=== PATIENT | male | born 1985 | race African-American/Black ===

== ENCOUNTER 2016-08-19 22:10 | Emergency (ER) | payer MEDICAID | END 2016-08-19 23:05 | disposition home or self-care (01) | LOC: D.ER 22:10 | DX: K08.89 Other specified disorders of teeth and supporting structures (principal); E11.9 Type 2 diabetes mellitus without complications; Z79.4 Long term (current) use of insulin; F17.200 Nicotine dependence, unspecified, uncomplicated ==

== ENCOUNTER 2017-05-30 00:33 | Emergency (ER) | payer MEDICAID ==
[2017-05-30 01:20] LABS: APPEARANCE CLEAR (CLEAR); BILIRUBIN NEGATIVE (NEGATIVE); COLOR YELLOW (YELLOW); GLUCOSE NEGATIVE (NEGATIVE); KETONE NEGATIVE (NEGATIVE); NITRITE NEGATIVE (NEGATIVE); PROTEIN NEGATIVE (NEGATIVE); UROBILINOGEN NORMAL (NORMAL)
[2017-05-30 01:41] LABS: BASOPHILS 0.4 % (0-2); EOSINOPHILS 2.2 % (0-7); HEMATOCRIT 40.5 % (42.0-54.0); HEMOGLOBIN 13.7 g/dL (13.5-17.5); IMMATURE GRANULOCYTES 0.2 % (0-5); LYMPHOCYTES 37.8 % (15-50); MCH 27.6 pg (26.0-34.0); MCHC 33.8 g/dL (31.0-37.0); MCV 81.7 fL (80.0-100.0); MONOCYTES 7.3 % (2-11); NEUTROPHILS 52.1 % (40-80); RBC 4.96 10x6/uL (4.20-6.10); RDW 13.3 % (11.5-14.5)
[2017-05-30 01:43] LABS: PLATELET COUNT 184 10x3/uL (130-400)
[2017-05-30 01:58] LABS: ALBUMIN 3.5 g/dL (3.4-5.0); ANION GAP 15.3 mmol/L (8-16); BILIRUBIN - TOTAL 0.3 mg/dL (0.2-1.3); CALCIUM 8.7 mg/dL (8.5-10.1); CARBON DIOXIDE 25.4 mmol/L (21.0-32.0); CREATININE - SERUM 1.2 mg/dL (0.6-1.3); POTASSIUM - SERUM 3.7 mmol/L (3.5-5.1); PROTEIN - SERUM 7.7 g/dL (6.4-8.2)
== END 2017-05-30 02:35 | disposition home or self-care (01) ==
LOC: D.ER 00:33
PROVIDERS: Emergency Medicine
DX: R11.10 Vomiting, unspecified (principal); E11.65 Type 2 diabetes mellitus with hyperglycemia; Z79.4 Long term (current) use of insulin; F17.200 Nicotine dependence, unspecified, uncomplicated

== ENCOUNTER 2017-11-08 14:36 | Emergency (ER) | payer MEDICAID ==
[2017-11-08 15:13] LABS: BASOPHILS 0.5 % (0-2); EOSINOPHILS 2.2 % (0-7); HEMATOCRIT 42.7 % (42.0-54.0); HEMOGLOBIN 14.8 g/dL (13.5-17.5); IMMATURE GRANULOCYTES 0.2 % (0-5); LYMPHOCYTES 38.7 % (15-50); MCH 28.1 pg (26.0-34.0); MCHC 34.7 g/dL (31.0-37.0); MCV 81.2 fL (80.0-100.0); MEAN PLATELET VOLUME 11.6 fL (7.4-10.4); MONOCYTES 6.7 % (2-11); NEUTROPHILS 51.7 % (40-80); PLATELET COUNT 181 10x3/uL (130-400); RBC 5.26 10x6/uL (4.20-6.10); RDW 13.4 % (11.5-14.5); WBC 4.2 10x3/uL (4.8-10.8)
[2017-11-08 15:17] LABS: APPEARANCE CLEAR (CLEAR); BILIRUBIN NEGATIVE (NEGATIVE); COLOR YELLOW (YELLOW); GLUCOSE 1000 mg/dL (NEGATIVE); KETONE NEGATIVE (NEGATIVE); NITRITE NEGATIVE (NEGATIVE); PROTEIN NEGATIVE (NEGATIVE); UROBILINOGEN NORMAL (NORMAL)
[2017-11-08 15:19] LABS: BACTERIA FEW /hpf (NONE SEEN); EPITHELIAL CELLS 0-5 /hpf (0-5); WHITE CELLS - URINE 0-5 /hpf (0-5)
[2017-11-08 15:27] LABS: ALBUMIN 3.6 g/dL (3.4-5.0); ALKALINE PHOSPHATASE 97 U/L (46-116); ALT (SGPT) 53 U/L (10-68); BILIRUBIN - TOTAL 0.57 mg/dL (0.2-1.3); CALC OSMOLALITY 283 mosm/kg (275-300); CALCIUM 9.2 mg/dL (8.5-10.1); CARBON DIOXIDE 28.1 mmol/L (21.0-32.0); CHLORIDE - SERUM 100 mmol/L (98-107); GLUCOSE 325 mg/dL (74-106); POTASSIUM - SERUM 3.9 mmol/L (3.5-5.1); PROTEIN - SERUM 7.8 g/dL (6.4-8.2); SODIUM 136 mmol/L (136-145); UREA NITROGEN 9 mg/dL (7-18); eGFR NON AFRICAN AMERICAN > 90 mL/min (90-120)
== END 2017-11-08 20:25 | disposition home or self-care (01) ==
LOC: D.ER 14:36
PROVIDERS: Emergency Medicine
DX: E11.65 Type 2 diabetes mellitus with hyperglycemia (principal); Z79.4 Long term (current) use of insulin; F17.200 Nicotine dependence, unspecified, uncomplicated

== ENCOUNTER 2017-11-10 13:06 | Emergency (ER) | payer MEDICAID | END 2017-11-10 15:54 | disposition left against medical advice (07) | LOC: D.ER 13:06 | DX: R42 Dizziness and giddiness (principal) ==

== ENCOUNTER 2018-05-27 10:17 | Emergency (ER) | payer SELFPAY ==
[~2018-05-27] VITALS: Ht 182.9 cm; Wt 109.1 kg
[2018-05-27 10:21] VITALS: Ht 182.9 cm; Wt 109.1 kg
[2018-05-27] MEDS ORDERED: TORADOL10 MG PO (11:19)
[2018-05-27 12:40] VITALS: BP 107/70
== END 2018-05-27 12:40 | disposition home or self-care (01) ==
LOC: D.ER 10:17
DX: M25.562 Pain in left knee (principal); F17.200 Nicotine dependence, unspecified, uncomplicated

== ENCOUNTER 2018-06-19 19:27 | Emergency (ER) | payer SELFPAY ==
[~2018-06-19] VITALS: Ht 182.9 cm; Wt 109.1 kg
[~2018-06-19 19:27] MED LIST: TORADOL10 MG PO
[2018-06-19 19:34] VITALS: Ht 182.9 cm; Wt 109.1 kg
[2018-06-19] MEDS ORDERED: DICLOFENAC SODI50 MG PO (21:31)
[2018-06-19 22:10] VITALS: BP 122/77
== END 2018-06-19 22:10 | disposition home or self-care (01) ==
LOC: D.ER 19:27
DX: R59.0 Localized enlarged lymph nodes (principal); M54.16 Radiculopathy, lumbar region; F17.200 Nicotine dependence, unspecified, uncomplicated

== ENCOUNTER 2018-07-12 22:44 | Emergency (ER) | payer SELFPAY ==
[~2018-07-12] VITALS: Ht 182.9 cm; Wt 109.1 kg
[~2018-07-12 22:44] MED LIST changes: +DICLOFENAC SODI50 MG PO
[2018-07-12 22:47] VITALS: Ht 182.9 cm; Wt 109.1 kg
[2018-07-12] MEDS ORDERED: GLUCOPHAGE500 MG PO (22:48)
[2018-07-12] MEDS ORDERED: UNK INSULIN (22:48)
[2018-07-12 23:21] LABS: BASOPHILS 0.4 % (0-2); EOSINOPHILS 1.6 % (0-7); HEMATOCRIT 41.6 % (42.0-54.0); HEMOGLOBIN 14.5 g/dL (13.5-17.5); IMMATURE GRANULOCYTES 0.2 % (0-5); LYMPHOCYTES 40.6 % (15-50); MCH 28.6 pg (26.0-34.0); MCHC 34.9 g/dL (31.0-37.0); MCV 82.1 fL (80.0-100.0); MEAN PLATELET VOLUME 11.9 fL (7.4-10.4); MONOCYTES 6.9 % (2-11); NEUTROPHILS 50.3 % (40-80); PLATELET COUNT 198 10x3/uL (130-400); RBC 5.07 10x6/uL (4.20-6.10); RDW 12.9 % (11.5-14.5); WBC 5.1 10x3/uL (4.8-10.8)
[2018-07-12 23:32] LABS: APTT 25.7 SECONDS (22.8-39.4); INR 0.98 (0.85-1.17); PROTIME 12.5 SECONDS (11.6-15.0)
[2018-07-12 23:47] LABS: ALBUMIN 3.7 g/dL (3.4-5.0); ALKALINE PHOSPHATASE 94 U/L (46-116); ALT (SGPT) 52 U/L (10-68); BILIRUBIN - TOTAL 0.26 mg/dL (0.2-1.3); CALCIUM 9.1 mg/dL (8.5-10.1); CARBON DIOXIDE 26.4 mmol/L (21.0-32.0); CHLORIDE - SERUM 96 mmol/L (98-107); CKMB 0.1 U/L (0.0-3.6); CREATINE KINASE 118 UL (21-232); CREATININE - SERUM 1.3 mg/dL (0.6-1.3); MAGNESIUM - SERUM 1.9 mg/dL (1.8-2.4); POTASSIUM - SERUM 3.9 mmol/L (3.5-5.1); PROTEIN - SERUM 8.2 g/dL (6.4-8.2); SODIUM 133 mmol/L (136-145); UREA NITROGEN 12 mg/dL (7-18); eGFR NON AFRICAN AMERICAN 67 mL/min (90-120)
[2018-07-12 23:49] LABS: CALC OSMOLALITY 284 mosm/kg (275-300); GLUCOSE 445 mg/dL (74-106); TROPONIN-I < 0.017 ng/mL (0.000-0.060)
[2018-07-13 00:06] LABS: UDS - AMPHET NEGATIVE QUAL (NEGATIVE); UDS - BARB NEGATIVE QUAL (NEGATIVE); UDS - BENZO NEGATIVE QUAL (NEGATIVE); UDS - COCAINE NEGATIVE QUAL (NEGATIVE); UDS - OPIATE NEGATIVE QUAL (NEGATIVE); UDS - PCP NEGATIVE QUAL (NEGATIVE); UDS - THC NEGATIVE QUAL (NEGATIVE)
[2018-07-13 02:34] VITALS: BP 124/87
== END 2018-07-13 02:34 | disposition home or self-care (01) ==
LOC: D.ER 22:44
PROVIDERS: Emergency Medicine
DX: E11.65 Type 2 diabetes mellitus with hyperglycemia (principal); R07.89 Other chest pain; F17.200 Nicotine dependence, unspecified, uncomplicated

== ENCOUNTER 2019-02-21 19:37 | Emergency (ER) | payer SELFPAY ==
[~2019-02-21] VITALS: Ht 182.9 cm; Wt 106.8 kg
[~2019-02-21 19:37] MED LIST changes: +GLUCOPHAGE500 MG PO; +UNK INSULIN
[2019-02-21 19:58] VITALS: Ht 182.9 cm; Wt 106.8 kg
[2019-02-21 20:18] LABS: BASOPHILS 0.5 % (0-2); EOSINOPHILS 2.7 % (0-7); HEMATOCRIT 43.4 % (42.0-54.0); HEMOGLOBIN 15.6 g/dL (13.5-17.5); IMMATURE GRANULOCYTES 0.3 % (0-5); LYMPHOCYTES 33.1 % (15-50); MCH 28.8 pg (26.0-34.0); MCHC 35.9 g/dL (31.0-37.0); MCV 80.2 fL (80.0-100.0); MEAN PLATELET VOLUME 11.5 fL (7.4-10.4); MONOCYTES 7.4 % (2-11); PLATELET COUNT 189 10x3/uL (130-400); RBC 5.41 10x6/uL (4.20-6.10); RDW 13.1 % (11.5-14.5); WBC 6.4 10x3/uL (4.8-10.8)
[2019-02-21 20:33] LABS: ALBUMIN 3.2 g/dL (3.4-5.0); ALKALINE PHOSPHATASE 84 U/L (46-116); ALT (SGPT) 51 U/L (10-68); BILIRUBIN - TOTAL 0.65 mg/dL (0.2-1.3); CALC OSMOLALITY 286 mosm/kg (275-300); CALCIUM 8.5 mg/dL (8.5-10.1); CARBON DIOXIDE 29.7 mmol/L (21.0-32.0); CHLORIDE - SERUM 102 mmol/L (98-107); POTASSIUM - SERUM 3.8 mmol/L (3.5-5.1); PROTEIN - SERUM 6.6 g/dL (6.4-8.2); SODIUM 139 mmol/L (136-145); UREA NITROGEN 6 mg/dL (7-18); eGFR NON AFRICAN AMERICAN > 90 mL/min (90-120)
[2019-02-21 20:36] LABS: GLUCOSE 301 mg/dL (74-106)
[2019-02-21 20:37] LABS: CREATINE KINASE 131 UL (21-232)
[2019-02-21 20:38] LABS: TROPONIN-I < 0.017 ng/mL (0.000-0.060)
[2019-02-21] MEDS ORDERED: GLUCOPHAGE500 MG PO (21:50)
[2019-02-21] MEDS ORDERED: ULTRAM50 MG PO (21:52)
[2019-02-21 22:25] VITALS: BP 123/91
== END 2019-02-21 22:25 | disposition home or self-care (01) ==
LOC: D.ER 19:37
PROVIDERS: Emergency Medicine
DX: R07.89 Other chest pain (principal); E11.65 Type 2 diabetes mellitus with hyperglycemia

== ENCOUNTER 2019-05-29 01:36 | Emergency (ER) | payer MEDICAID ==
[~2019-05-29] VITALS: Ht 182.9 cm; Wt 95.5 kg
[~2019-05-29 01:36] MED LIST changes: +ULTRAM50 MG PO
[2019-05-29 01:39] VITALS: Ht 182.9 cm; Wt 95.5 kg
[2019-05-29] MEDS ORDERED: AMOXICILLIN500 M1 PO (01:43)
[2019-05-29] MEDS ORDERED: DICLOFENAC SODI50 MG PO (01:43)
[2019-05-29 02:15] VITALS: BP 125/79
== END 2019-05-29 02:17 | disposition home or self-care (01) ==
LOC: D.ER 01:36
DX: K08.89 Other specified disorders of teeth and supporting structures (principal); E11.9 Type 2 diabetes mellitus without complications; Z79.84 Long term (current) use of oral hypoglycemic drugs

== ENCOUNTER 2019-07-17 19:14 | Emergency (ER) | payer MEDICAID ==
[~2019-07-17] VITALS: Ht 182.9 cm; Wt 109.1 kg
[~2019-07-17 19:14] MED LIST changes: +AMOXICILLIN500 M1 PO
[2019-07-17 19:31] VITALS: Ht 182.9 cm; Wt 109.1 kg
[2019-07-17] MEDS ORDERED: NAPROSYN500 MG PO (19:33)
[2019-07-17] MEDS ORDERED: [UNRECOGNIZED DRUG - REMARK] (19:33)
[2019-07-17 20:02] LABS: BASOPHILS 0.3 % (0-2); EOSINOPHILS 1.9 % (0-7); HEMATOCRIT 43.2 % (42.0-54.0); HEMOGLOBIN 14.9 g/dL (13.5-17.5); IMMATURE GRANULOCYTES 0.2 % (0-5); LYMPHOCYTES 25.9 % (15-50); MCH 28.5 pg (26.0-34.0); MCHC 34.5 g/dL (31.0-37.0); MCV 82.6 fL (80.0-100.0); MEAN PLATELET VOLUME 11.5 fL (7.4-10.4); MONOCYTES 5.1 % (2-11); NEUTROPHILS 66.6 % (40-80); RBC 5.23 10x6/uL (4.20-6.10); RDW 12.6 % (11.5-14.5); WBC 6.3 10x3/uL (4.8-10.8)
[2019-07-17 20:03] LABS: PLATELET COUNT 230 10x3/uL (130-400)
[2019-07-17 20:13] LABS: KETONE - SERUM NEGATIVE (NEGATIVE)
[2019-07-17 20:14] LABS: APPEARANCE CLEAR (CLEAR); BILIRUBIN NEGATIVE (NEGATIVE); COLOR STRAW (YELLOW); GLUCOSE 1000 mg/dL (NEGATIVE); KETONE NEGATIVE (NEGATIVE); NITRITE NEGATIVE (NEGATIVE); PROTEIN NEGATIVE (NEGATIVE); SPECIFIC GRAVITY 1.005 (1.005-1.020); UROBILINOGEN NORMAL (NORMAL)
[2019-07-17 20:22] LABS: ALBUMIN 3.5 g/dL (3.4-5.0); ALKALINE PHOSPHATASE 69 U/L (30-120); ALT (SGPT) 47 U/L (10-68); BILIRUBIN - TOTAL 0.41 mg/dL (0.2-1.3); CALC OSMOLALITY 286 mosm/kg (275-300); CALCIUM 8.7 mg/dL (8.5-10.1); CARBON DIOXIDE 32.8 mmol/L (21.0-32.0); CHLORIDE - SERUM 100 mmol/L (98-107); CREATININE - SERUM 1.1 mg/dL (0.6-1.3); MAGNESIUM - SERUM 1.8 mg/dL (1.8-2.4); POTASSIUM - SERUM 3.9 mmol/L (3.5-5.1); PROTEIN - SERUM 6.9 g/dL (6.4-8.2); SODIUM 136 mmol/L (136-145); UREA NITROGEN 8 mg/dL (7-18); eGFR NON AFRICAN AMERICAN 81 mL/min (90-120)
[2019-07-17 20:25] LABS: GLUCOSE 409 mg/dL (74-106)
[2019-07-17 20:40] LABS: CKMB 0.6 U/L (0.0-3.6); CREATINE KINASE 98 UL (21-232); TROPONIN-I < 0.017 ng/mL (0.000-0.060)
[2019-07-17] MEDS ORDERED: CYCLOBENZAPRINE10 MG PO (21:33)
[2019-07-17 22:26] VITALS: BP 124/64
[2019-07-26] MEDS ORDERED: OMEPRAZOLE40 MG PO (11:58)
[2019-07-26] MEDS ORDERED: PREDNISONE50 MG PO (11:58)
== END 2019-07-17 22:26 | disposition home or self-care (01) ==
LOC: D.ER 19:14
PROVIDERS: Emergency Medicine
DX: S39.012A Strain of muscle, fascia and tendon of lower back, initial encounter (principal); E11.65 Type 2 diabetes mellitus with hyperglycemia; Z79.84 Long term (current) use of oral hypoglycemic drugs

== ENCOUNTER 2019-11-14 23:01 | Emergency (ER) | payer OTHER ==
[~2019-11-14] VITALS: Ht 182.9 cm; Wt 104.5 kg
[~2019-11-14 23:01] MED LIST changes: +CYCLOBENZAPRINE10 MG PO; +NAPROSYN500 MG PO; +OMEPRAZOLE40 MG PO; +PREDNISONE50 MG PO; +[UNRECOGNIZED DRUG - REMARK]
[2019-11-14 23:06] VITALS: BP 130/96; Ht 182.9 cm; Wt 104.5 kg
[2019-11-14] MEDS ORDERED: TYLENOL W/CODEI1 TAB PO (23:37)
[2019-11-14] MEDS ORDERED: PENICILLIN V P500 MG PO (23:37)
== END 2019-11-14 23:47 | disposition home or self-care (01) ==
LOC: D.ER 23:01
DX: K08.89 Other specified disorders of teeth and supporting structures (principal); S02.5XXA Fracture of tooth (traumatic), initial encounter for closed fracture; E11.9 Type 2 diabetes mellitus without complications; Z79.84 Long term (current) use of oral hypoglycemic drugs

== ENCOUNTER 2020-08-23 20:49 | Emergency (ER) | payer OTHER ==
[~2020-08-23] VITALS: Ht 182.9 cm; Wt 104.5 kg
[~2020-08-23 20:49] MED LIST changes: +PENICILLIN V P500 MG PO; +TYLENOL W/CODEI1 TAB PO
[2020-08-23 20:53] VITALS: Ht 182.9 cm; Wt 104.5 kg
[2020-08-23] MEDS ORDERED: LOPERAMIDE HCL2 MG PO (21:05)
[2020-08-23] MEDS ORDERED: ZOFRAN ODT4 MG/UDTAB PO (21:05)
[2020-08-23 21:16] VITALS: BP 139/91
== END 2020-08-23 21:16 | disposition home or self-care (01) ==
LOC: D.ER 20:49
DX: R11.2 Nausea with vomiting, unspecified (principal); R19.7 Diarrhea, unspecified; E11.9 Type 2 diabetes mellitus without complications; Z79.84 Long term (current) use of oral hypoglycemic drugs

== ENCOUNTER 2020-12-09 22:25 | Emergency (ER) | payer OTHER ==
[~2020-12-09] VITALS: Ht 182.9 cm; Wt 104.3 kg
[~2020-12-09 22:25] MED LIST changes: +LOPERAMIDE HCL2 MG PO; +ZOFRAN ODT4 MG/UDTAB PO
[2020-12-09 22:42] VITALS: BP 123/85; Ht 182.9 cm; Wt 104.3 kg
== END 2020-12-10 00:35 | disposition left against medical advice (07) ==
LOC: D.ER 22:25
DX: R51.9 Headache, unspecified (principal)